=== PATIENT | female | born 1945 | race Caucasian/White ===

== ENCOUNTER → 2017-07-09 | Outpatient (CLI) | payer OTHER ==
[~2017-07-09] VITALS: Ht 154.9 cm; Wt 62.1 kg
[~2017-07-09] MED LIST: ASPIR 8181 MG PO; B-COMPLEX-VITA1 EACH PO; CARAFATE 1 GM TA1 G1 PO; DETROL LA4 MG PO; FISH OIL 1,001000 M2 PO; GLUCOSAMINE CO1 EACH PO; HYDROCODONE-APA1 TA1 PO; LEVOTHYROXINE0.05 MG PO; LUTEIN-ZEAXANT1 EACH PO; MAGNESIUM OXID400 MG PO; MULTIVITAMINS PO; POTASSIUM99 M1 PO; PREVACID30 MG PO; PROBIOTIC1 EAC1 PO; SYNTHROID50 MCG PO; TRICOR145 MG PO; VAGIFEM10 MCG VG; VITAMIN D35000 UNIT PO; XYZAL5 MG PO; ZOCOR20 MG PO
--- NOTE | ~2017-07-09 | P ---
[facility] [place] [address] PROCEDURE REPORT Name: RHYSELVIA Conteh [facility] [id number] Admission: 07/09/17 Attend Phys: Mansoor Stone Discharge: Date of : 49 Report #: [id number] THIS REPORT FOR: //name// CC: Mansoor Chaudhari DATE OF SERVICE: 07/09/2017 PROCEDURE PERFORMED: Upper endoscopy with esophageal dilation. HISTORY OF PRESENT ILLNESS: The patient is a 71-year-old female with a history of dysphagia. Previous upper endoscopy with dilation was helpful. This was several years ago. She is having increasing dysphagia. Plan is for EGD with dilation today. DESCRIPTION OF PROCEDURE: The risks and benefits of the procedure were explained to the patient, those risks including but not limited to bleeding, perforation and the risk of sedation. She understood these risks and gave informed consent. Sedation was given using propofol per anesthesia. Next, using a standard [employer] upper endoscope, the scope was placed in the patient's mouth and advanced under direct vision through the esophagus, stomach and into the second portion of the duodenum. The larynx was normal in appearance. There was a mild narrowing in the upper esophagus. The mid and distal esophagus were normal. Upon entering the stomach, a small hiatal hernia was noted. Overall, the gastric mucosa was normal. The pylorus was normal and patent. The duodenal bulb, first and second portion were all normal. The scope was then brought back up into the patient's stomach and a Savary guidewire was inserted through the scope, leaving the guidewire in place as the scope was then withdrawn. Next, a 51-Pashto Savary dilation was then performed without difficulty. The wire and dilator were removed. The scope was reintroduced into the patient's stomach. There were 2 small mucosal tears noted in the proximal esophagus where the area of narrowing was noted. There was no bleeding. The scope was then withdrawn and the procedure terminated. The patient tolerated the procedure well. IMPRESSION: 1. Mild narrowing of proximal esophagus, status post dilation. 2. Small hiatal hernia. 3. Otherwise, normal upper endoscopy. RECOMMENDATIONS: Observe the patient post dilation. [facility] [address] [place] [address] PROCEDURE REPORT Name: ELVIA JOINER Room #: REG [facility]#: [id number] Admission: 07/09/17 Attend Phys: Mansoor Stone Discharge: Date of : 49 Report #: [id number] Thank you for allowing me to participate in her care. By: [id number] Mansoor Molina MD /nt
== END | disposition home or self-care (01) ==
LOC: GI 08:40
DX: K22.2 Esophageal obstruction (principal); K44.9 Diaphragmatic hernia without obstruction or gangrene; K22.8 Other specified diseases of esophagus; E78.00 Pure hypercholesterolemia, unspecified; K21.9 Gastro-esophageal reflux disease without esophagitis; Z96.653 Presence of artificial knee joint, bilateral; Z98.890 Other specified postprocedural states; Z88.2 Allergy status to sulfonamides; Z88.6 Allergy status to analgesic agent; Z79.82 Long term (current) use of aspirin; Z79.899 Other long term (current) drug therapy